=== PATIENT | male | born 1975 | race Caucasian/White ===

== ENCOUNTER 2024-05-17 06:19 | Day surgery (SDC) | payer OTHER ==
[~2024-05-17 06:19] MED LIST: MIDAZOLAM HCL 5 MG/5 ML VIAL IV PRN; fentaNYL citrate 100 MCG/2 ML VIAL IV PRN
[2024-05-17 06:32] VITALS: BP 114/75
[2024-05-17] MEDS ORDERED: MIDAZOLAM HCL 5 MG/5 ML VIAL ONE (06:53)
[2024-05-17] MEDS ORDERED: fentaNYL citrate 100 MCG/2 ML VIAL ONE (06:53)
[2024-05-17] MEDS ORDERED: LIDOCAINE HCL 1% 5 ML SDV INJ ONE (07:00)
[2024-05-17] MEDS ORDERED: IBLOOD GLUCOSE TEST STRIP 1 EA TEST VI PRN (07:00)
[2024-05-17] MEDS ORDERED: LACTATED RINGER'S 1,000 ML IV SCH (07:00)
--- NOTE | 2024-05-17 08:14 | NUR ---
05/17/24 0814 David,Fifi [id number] PT ARRIVED TO PACU ON 3L VIA NC, PT WAKES EASILY AND IS REORIENTED TO PACU. RESP EVEN AND UNLABORED. PT DENIES CONCERNS, NO PAIN OR NAUSEA. PLAN OF CARE DISCUSSED.
[2024-05-17 08:39] VITALS: BP 103/75
--- NOTE | 2024-05-21 12:42 | OR ---
[facility] [address], [place] [address] Signed DATE OF OPERATION: 05/17/2024 SURGEON: Erna Youssef MD PREOPERATIVE DIAGNOSIS: Colon screening. POSTOPERATIVE DIAGNOSES: 1. Normal colon to cecum. 2. Normal prostate exam. PROCEDURE: Total colonoscopy to cecum. ANESTHESIA: Intravenous sedation, fentanyl 150 mcg and Versed 9 mg. INDICATIONS FOR THE PROCEDURE: This 48-year-old very healthy white man is a patient of Dr. Ty Fountain. He is referred for screening colonoscopy based on his age. He has no family history of colon cancer. No current symptoms of bleeding, diarrhea, or constipation. He does have some concerns about "prostate cancer," though he does not have a family history for that he is aware of. He is admitted at this time to undergo colonoscopy and digital rectal examination regarding the prostate on that basis. He understands the risk of bleeding, infection, and perforation and wished to proceed. FINDINGS: The prep was good. Complete colonoscopy was undertaken of the cecum with full intubation of the cecum. The ileocecal valve and appendiceal orifice were normal. Remaining colon was entirely normal as well. Digital exam showed a very small prostate, not worrisome for malignancy in the slightest. DESCRIPTION OF PROCEDURE: The patient was brought to the endoscopy suite and placed in lateral decubitus position given intravenous sedation to the point of slurred speech and nystagmus. Digital rectal examination showed no anorectal abnormality and prostate was normal and indeed small for age. An Olympus video colonoscope was passed into the rectum and manipulated throughout the colon, ultimately intubating the cecum itself. The ileocecal valve and appendiceal Electronically Signed By: ERNA YOUSSEF MD 05/21/24 1242 PATIENT NAME: ERICA DUBOIS OPERATIVE REPORT DATE OF : 73 REPORT #: [id number] PHYSICIAN: ERNA YOUSSEF MD PCP: TY FOUNTAIN MD REPORT IS CONFIDENTIAL AND NOT TO BE RELEASED WITHOUT AUTHORIZATION [facility] [address], [place] [address] Signed orifice were normal. The scope was withdrawn from that point and examination throughout showed no sign of abnormality, specifically no polyps, diverticular formation, colitis, or cancer. Retroflexed view of the rectum was normal. The scope was removed. The patient was taken to the recovery room in good condition. CONCLUDING DIAGNOSIS: Normal colon to cecum. PLAN: Recommend repeat colonoscopy in 10 years or sooner if symptoms should develop. The patient does desire a PSA test, which I will order and send copy to his primary provider, Dr. Ty Fountain. The patient tells me he has not had a PSA test in the past. MD CONCHA Morales/PAULAL /[id number] cc: Ty Fountain MD Copies: TY FOUNTAIN DMD ~ Electronically Signed By: ERNA YOUSSEF MD 05/21/24 1242 PATIENT NAME: ERICA DUBOIS OPERATIVE REPORT DATE OF : 73 REPORT #: [id number] PHYSICIAN: ERNA YOUSSEF MD PCP: TY FOUNTAIN MD REPORT IS CONFIDENTIAL AND NOT TO BE RELEASED WITHOUT AUTHORIZATION
== END 2024-05-17 08:44 | disposition home or self-care (01) ==
LOC: DS 06:19
PROVIDERS: ATTEND Surgery
PROC: 0DJD8ZZ Inspection of Lower Intestinal Tract, Via Natural or Artificial Opening Endoscopic (ICD-10-PCS; principal; 2024-05-17 07:30)
DX: Z12.11 Encounter for screening for malignant neoplasm of colon (principal)
CPT/HCPCS: 36415; 84153; 99153; G0500; J2250; J3010; J7121